=== PATIENT | male | born 1955 | race Caucasian/White ===

== ENCOUNTER 2016-09-29 11:11 | Day surgery (SDC) | payer OTHER ==
[2016-09-29] MEDS ORDERED: LACTATED RINGERS 1,000 ML IV ONE (11:36)
[2016-09-29] MEDS ORDERED: fentaNYL 250 MCG/5 ML VIAL IVP ONE (12:50)
[2016-09-29] MEDS ORDERED: MIDAZOLAM 2 MG/2 ML VIAL IVP ONE (12:50)
== END 2016-09-29 11:12 | disposition home or self-care (01) ==
PROC: 0DJD8ZZ Inspection of Lower Intestinal Tract, Via Natural or Artificial Opening Endoscopic (ICD-10-PCS; principal; 2016-09-29 12:15)
DX: Z12.11 Encounter for screening for malignant neoplasm of colon (principal); R10.31 Right lower quadrant pain; K64.4 Residual hemorrhoidal skin tags; K64.8 Other hemorrhoids; K57.30 Diverticulosis of large intestine without perforation or abscess without bleeding; Z80.42 Family history of malignant neoplasm of prostate; Z82.49 Family history of ischemic heart disease and other diseases of the circulatory system
CPT/HCPCS: 45378; J3010; J7120

== ENCOUNTER 2017-05-20 12:33 | Outpatient (CLI) | payer OTHER ==
[2017-05-20 19:43] LABS: BASOPHILS # (AUTO) 0.1 10^3/uL (0.0-0.1); BASOPHILS % (AUTO) 1.4 %; EOSINOPHILS # (AUTO) 0.5 10^3/uL (0.0-0.7); EOSINOPHILS % (AUTO) 7.7 %; HCT - HEMATOCRIT 39.8 % (42.0-52.0); HGB - HEMOGLOBIN 13.5 g/dL (14.0-18.0); LYMPHOCYTES # (AUTO) 1.5 10^3/uL (1.5-3.5); MEAN CORPUSCULAR HEMOGLOBIN 31.5 pg (27.0-31.0); MEAN CORPUSCULAR HGB CONC 33.9 g/dL (32.0-36.0); MEAN CORPUSCULAR VOLUME 92.8 fL (80.0-94.0); MONOCYTES # (AUTO) 0.6 10^3/uL (0.0-1.0); MONOCYTES % (AUTO) 9.6 %; NEUTROPHILS # (AUTO) 3.7 10^3/uL (1.5-6.6); NEUTROPHILS % (AUTO) 58.3 %; RED BLOOD COUNT 4.28 10^6/uL (4.70-6.10); RED CELL DISTRIBUTION WIDTH 13.6 % (12.0-15.0); UNCORRECTED WHITE BLOOD COUNT 6.4 x10^3/uL; WHITE BLOOD COUNT 6.4 x10^3/uL (4.8-10.8)
[2017-05-20 20:05] LABS: ALBUMIN/GLOBULIN RATIO 1.5 (1.0-2.2); BILIRUBIN,TOTAL 1.5 mg/dL (0.2-1.0); BUN - BLOOD UREA NITROGEN 23 mg/dL (6-20); CALCIUM 9.1 mg/dL (8.5-10.3); CARBON DIOXIDE - CO2 28 mmol/L (21-32); CHLORIDE 105 mmol/L (101-111); CHOL/HDL RATIO 2.6 (<5.0); CHOLESTEROL 225 mg/dL; GFR - MDRD 75 (>89); GLUCOSE 90 mg/dL (70-100); HDL CHOLESTEROL 87 mg/dL; LDL/HDL RATIO 1.4 (<3.6); POTASSIUM 4.6 mmol/L (3.5-5.0); SODIUM 136 mmol/L (135-145); TOTAL PROTEIN 6.7 g/dL (6.7-8.2); TRIGLYCERIDES 96 mg/dL; VLDL CHOLESTEROL 19 mg/dL
[2017-05-20 20:21] LABS: HEMOGLOBIN A1C 0.48 g/dL
== END 2017-05-20 12:34 ==
LOC: LAB.WCP 12:33
PROVIDERS: ATTEND Family Medicine
DX: Z00.00 Encounter for general adult medical examination without abnormal findings (principal); Z12.5 Encounter for screening for malignant neoplasm of prostate
CPT/HCPCS: 36415; 80053; 80061; 83036; 84153; 84443; 85025

== ENCOUNTER 2017-08-09 12:17 | Outpatient (CLI) | payer OTHER ==
[2017-08-09] MEDS ORDERED: IOPAMIDOL-300 50 ML VIAL ONE (12:39)
[2017-08-09] MEDS ORDERED: IOPAMIDOL-300 100 ML VIAL ONE (12:39)
[2017-08-09 12:52] LABS: CREATININE 1.1 mg/dL (0.6-1.2)
[2017-08-09] MEDS ORDERED: IOPAMIDOL-300 50 ML VIAL PO ONE (14:04)
[2017-08-09] MEDS ORDERED: IOPAMIDOL-300 100 ML VIAL IVP ONE (14:05)
--- NOTE | 2017-08-09 15:17 | CT Report ---
CT OF THE ABDOMEN AND PELVIS WITH CONTRAST: 08/09/2017 CLINICAL INDICATION: Pain, constipation. TECHNIQUE: Axial CT images of the abdomen and pelvis were obtained with 100 mL Isovue 300 intravenously as well as oral contrast. No previous CT is available for comparison. FINDINGS: Limited evaluation of the lung bases is unremarkable. ABDOMEN: The liver, spleen, pancreas, kidneys and adrenal glands are unremarkable. The gallbladder is not dilated. No bowel dilatation, free gas, or free fluid is present. No abdominal adenopathy is seen. There is a large amount of stool in the ascending and transverse colon. PELVIS: Sigmoid diverticulosis is present, without CT evidence of diverticulitis. No pelvic adenopathy or free fluid is present. Osseous structures demonstrate mild degenerative changes. IMPRESSION: DIVERTICULOSIS, WITHOUT CT EVIDENCE OF DIVERTICULITIS. In accordance with CT protocol optimization, one or more of the following dose reduction techniques were utilized for this exam: automated exposure control, adjustment of mA and/or KV based on patient size, or use of iterative reconstructive technique. TD: 08/09/2017 15:16
== END 2017-08-09 12:18 | disposition home or self-care (01) ==
LOC: LAB 12:17 → DI 12:18
PROVIDERS: ATTEND Family Medicine
DX: K57.30 Diverticulosis of large intestine without perforation or abscess without bleeding (principal); R10.9 Unspecified abdominal pain
CPT/HCPCS: 36415; 74177; 82565; Q9967

== ENCOUNTER 2017-11-18 10:49 | Outpatient (CLI) | payer OTHER ==
[2017-11-18 11:18] LABS: BASOPHILS # (AUTO) 0.1 10^3/uL (0.0-0.1); BASOPHILS % (AUTO) 2.3 %; EOSINOPHILS # (AUTO) 0.5 10^3/uL (0.0-0.7); EOSINOPHILS % (AUTO) 8.5 %; HGB - HEMOGLOBIN 13.2 g/dL (14.0-18.0); LYMPHOCYTES # (AUTO) 1.6 10^3/uL (1.5-3.5); LYMPHOCYTES % (AUTO) 29.5 %; MEAN CORPUSCULAR HEMOGLOBIN 31.3 pg (27.0-31.0); MEAN CORPUSCULAR HGB CONC 34.1 g/dL (32.0-36.0); MEAN CORPUSCULAR VOLUME 91.6 fL (80.0-94.0); MEAN PLATELET VOLUME 8.1 fL (7.4-11.4); MONOCYTES # (AUTO) 0.6 10^3/uL (0.0-1.0); MONOCYTES % (AUTO) 11.7 %; NEUTROPHILS # (AUTO) 2.6 10^3/uL (1.5-6.6); PLT - PLATELET COUNT 193 10^3/uL (130-450); RED BLOOD COUNT 4.22 10^6/uL (4.70-6.10); RED CELL DISTRIBUTION WIDTH 13.1 % (12.0-15.0); WHITE BLOOD COUNT 5.4 x10^3/uL (4.8-10.8)
[2017-11-18 11:28] LABS: CALCIUM 8.7 mg/dL (8.5-10.3)
== END 2017-11-18 10:50 | disposition home or self-care (01) ==
LOC: LAB 10:49
PROVIDERS: ATTEND Internal Medicine Gastroenterology
DX: K40.90 Unilateral inguinal hernia, without obstruction or gangrene, not specified as recurrent (principal)
CPT/HCPCS: 36415; 80048; 85025

== ENCOUNTER 2017-11-22 07:55 | Day surgery (SDC) | payer OTHER ==
[~2017-11-22 07:55] MED LIST: LACTATED RINGERS 1,000 ML IV ONE; ceFAZolin 2 GM/50 ML 2 GM/50 ML BAG IV ONE
[2017-11-22] MEDS ORDERED: BUPIVACAINE 0.5%-EPI 1:200000 PF 30 ML VIAL ONE (08:03)
[2017-11-22] MEDS ORDERED: LIDOCAINE 1% 50 ML MDV ONE (08:09)
[2017-11-22] MEDS ORDERED: BUPIVACAINE 0.5%-EPI 1:200000 PF 30 ML VIAL SUBQ ONE ×2 (08:45→09:10)
[2017-11-22] MEDS ORDERED: LIDOCAINE 1% 50 ML MDV SUBQ ONE ×2 (08:46→09:10)
[2017-11-22] MEDS ORDERED: fentaNYL 100 MCG/2 ML VIAL IVP ONE (10:00)
[2017-11-22] MEDS ORDERED: MIDAZOLAM 2 MG/2 ML VIAL IVP ONE (10:00)
[2017-11-22] MEDS ORDERED: PROPOFOL 200 MG/20 ML VIAL IVP ONE (10:00)
[2017-11-22] MEDS ORDERED: ePHEDrine 50 MG/ML AMP IVP ONE (10:00)
[2017-11-22] MEDS ORDERED: ceFAZolin 1 GM VIAL IV ONE (10:00)
[2017-11-22] MEDS ORDERED: KETOROLAC 30 MG/ML VIAL IVP ONE (10:00)
[2017-11-22 11:00] VITALS: BP 112/67
[2017-11-22] MEDS ORDERED: LACTATED RINGERS 1,000 ML IV ONE (11:10)
--- NOTE | 2017-11-22 12:29 | OPERATIVE REPORT ---
DATE OF SERVICE: 11/22/2017 Physician: Juan Daniel Coleman MD PREOPERATIVE DIAGNOSIS: Symptomatic left inguinal hernia. POSTOPERATIVE DIAGNOSIS: Symptomatic left inguinal hernia, indirect. PROCEDURE PERFORMED: Open repair of same with Bard soft tissue patch. ANESTHESIA: Local plus LMA by Dr. Piedra. VASCULAR SURGEON: Juan Daniel Coleman M.D. ESTIMATED BLOOD LOSS: Negligible. COMPLICATIONS: None. FINDINGS: A small indirect sac was present along with a lax inguinal floor. There was no evidence of femoral hernia. A medium-sized Bard PerFix soft tissue patch was implanted. INDICATIONS: The patient is a 62-year-old gentleman with a painful, reducible left groin bulge. Evaluation revealed a left inguinal hernia and he was advised to undergo repair. TECHNIQUE: After informed consent, the patient was taken to the operating room where he was placed under LMA anesthesia. Preoperative preparation included an application of sequential calf compression boots and administration 2 grams of cefazolin intravenously within an 1 hour of the incision. His left groin was prepared with iodoform solution following which a left groin block was instituted using a 50:50 combination of 0.5% Marcaine with epinephrine and 1% lidocaine plain, a total of 30 mL of the mixture was used. His groin was then prepared with ChloraPrep solution and draped in the usual sterile fashion. Transverse incision made in the skin lines of the left groin just above the pubic tubercle and extending laterally for a distance of 4-5 cm. Hemostasis achieved with electrocautery and 2-0 Vicryl tie. Incision carried down to subcutaneous tissues until the external oblique aponeurosis was exposed and was incised along the lines of its fibers in such a manner as to open the external ring and expose the internal ring. The spermatic cord was mobilized, encircled with a Concord drain. The ilioinguinal nerve was identified and preserved. The spermatic cord was dissected, isolating a small indirect sac. It was dissected free from surrounding cord structure at the level of the internal ring where it was opened and a finger inserted in the peritoneal cavity. A search for the femoral hernia was made and none was identified. The inguinal floor appeared lax. The hernia sac was twisted and doubly highly ligated with 3-0 silk suture ligatures. Excess hernia sac was amputated and discarded. A small cord lipoma was excised and discarded after ligating it at the base with 2-0 Vicryl ties. After hemostasis was assured, the wound was copiously irrigated with saline solution containing a gram of cefazolin per liter, following which a medium-sized PerFix expanded polypropylene mesh was soaked in antibiotic solution, placed over the inguinal floor and secured in place with continuous 4-0 Prolene sutures circumferentially. Care was taken to avoid excessive tightening of the patch around the cord at the level of the internal ring as well as avoiding entrapment of the ilioinguinal nerve. Again, after hemostasis assured, the wound was irrigated with antibiotic solution following which wound closure was accomplished in layers using continuous 2-0 Vicryl to reapproximate the external oblique aponeurosis overlying the cord with care being again taken to avoid entrapment of the ilioinguinal nerve. The Abhilash's fascia was closed with continuous 3-0 Vicryl and the skin with 4-0 Monocryl subcuticular on the skin closure, followed by Dermabond. Anesthesia was terminated. The patient was transferred to the recovery room in satisfactory condition. Sponge and needle counts were correct x2 and no drains were used. TD: 11/22/2017 10:46
== END 2017-11-22 07:56 | disposition home or self-care (01) ==
LOC: SDS 07:55
PROVIDERS: ATTEND Internal Medicine Gastroenterology
PROC: 0YU60JZ Supplement Left Inguinal Region with Synthetic Substitute, Open Approach (ICD-10-PCS; principal; 2017-11-22 09:00)
DX: K40.90 Unilateral inguinal hernia, without obstruction or gangrene, not specified as recurrent (principal); G89.29 Other chronic pain; M54.5 Low back pain; E80.4 Gilbert syndrome; L76.32 Postprocedural hematoma of skin and subcutaneous tissue following other procedure
CPT/HCPCS: 49505; 96372; 99283; C1781; J0690; J7120

== ENCOUNTER 2017-11-22 23:10 | Emergency (ER) | payer OTHER ==
[2017-11-22] MEDS ORDERED: fentaNYL 100 MCG/2 ML VIAL IM STA (23:59)
--- NOTE | 2017-11-23 00:03 | ED Physician Documentation ---
PD HPI ABD PAIN - Stated complaint Stated Complaint: SWELLING S/P SURGERY - Chief complaint Chief Complaint: Abd Pain - History obtained from History obtained from: Patient - History of Present Illness Timing - onset: Today Timing - details: Gradual onset, Still present Quality: Cramping, Aching Location: LLQ Associated symptoms: No: Fever, Nausea, Vomiting Recently seen: Surgery - Additional information Additional information: patient is a 62 year old male presenting to the emergency department for abdominal pain and swelling after having hernia surgery earlier today. patient states that for the last 4 hours it has become progressively worse. patient called the covering surgeon who told him to come in for evaluation. Review of Systems Constitutional: denies: Fever, Chills GI: reports: Abdominal Pain, Abdominal Swelling, Constipation. denies: Nausea, Vomiting : denies: Dysuria, Unable to Void, Hematuria PD PAST MEDICAL HISTORY - Past Medical History Past Medical History: Yes Cardiovascular: None Respiratory: None Endocrine/Autoimmune: None GI: None : None HEENT: Chronic sinusitis Psych: Claustrophobia Musculoskeletal: Chronic back pain - Past Surgical History Past Surgical History: Yes General: Appendectomy - Present Medications Home Medications: Ambulatory Orders Medication Instructions Recorded Confirmed Cetirizine HCl 10 mg PO DAILY 11/22/17 11/22/17 HYDROcod/ACETAM 5/325 [[place] 5/325] 1 tab PO ONCE 11/22/17 11/22/17 Multivit,Th Iron,Other Min 1 each PO DAILY 11/22/17 11/22/17 [Thera-M] - Allergies Allergies/Adverse Reactions: Allergies Allergy/AdvReac Type Severity Reaction Status Date / Time No Known Drug Allergies Allergy Verified 11/22/17 23:20 - Social History Does the pt smoke?: No Smoking Status: Never smoker Does the pt have substance abuse?: No PD ED PE NORMAL - Vitals Vital signs reviewed: Yes - General General: Alert and oriented X 3 - HEENT HEENT: Atraumatic - Cardiac Cardiac: RRR - Respiratory Respiratory: No respiratory distress - Extremities Extremities: No deformity - Neuro Neuro: Alert and oriented X 3 Eye Opening: Spontaneous Motor: Obeys Commands Verbal: Oriented GCS Score: 15 - Psych Psych: Normal mood PD ED PE EXPANDED - Abdomen Abdomen: Tender to palpation, Left abdomen (6cm by 8cm firm mass in left lower abdomen), Surgical scars Results - Vitals Vitals: Vital Signs - 24 hr 06/04/18 23:17 Temperature 37.0 C Heart Rate 104 H Respiratory 18 Rate Blood Pressure 121/86 H O2 Saturation 99 Oxygen O2 Source Room air PD MEDICAL DECISION MAKING - ED course Complexity details: reviewed old records, re-evaluated patient, considered differential, d/w patient, d/w [facility] consultant ED course: Patient was seen and examined at bedside. covering surgeon Dr. Villalobos was contacted and the case was discussed with him. He came to evaluate the patient. After evaluation it was determined patient likely had a hematoma. There was no intervention necessary at this time. Patient was treated with fentanyl for pain and was stable for discharge with outpatient follow up. Departure - Departure Disposition: Home, Self Care Clinical Impression: Hematoma of surgical wound of skin after surgical procedure Condition: Good Instructions: ED Hematoma Follow-Up: Juan Daniel Coleman MD [Provider Admit Priv/Credential] - Comments: Your symptoms today are likely being caused by post surgical hematoma. You should alternate between ice and heat over the wound. You should follow up with Dr. Coleman tomorrow morning for re-evaluation. You may return to the emergency department at any time for new, worsening or uncontrollable symptoms.
[2017-11-23 00:30] VITALS: BP 111/68
[2017-11-23] MEDS ORDERED: ONDANSETRON ODT 4 MG Prepack 2 TL STA (00:44)
== END 2017-11-23 00:29 | disposition home or self-care (01) ==
LOC: ED 23:10
DX: L76.32 Postprocedural hematoma of skin and subcutaneous tissue following other procedure (principal)
CPT/HCPCS: 96372; 99283

== ENCOUNTER 2017-12-14 10:56 | Outpatient (CLI) | payer OTHER ==
--- NOTE | 2017-12-14 12:43 | CT Report ---
Procedure Date: 12/14/2017 Accession Number: [id number] / [id number] Procedure: CT - Sinuses CPT Code: FULL RESULT: EXAM: Sinuses DATE: 12/14/2017 11:10 AM CLINICAL HISTORY: OTHER CHRONIC SINUSITIS, NASAL OBSTRUCTION COMPARISON: None. TECHNIQUE: Routine multi-axial CT imaging performed through the sinuses. Iodinated IV contrast: None. Reconstructions: Coronal. In accordance with CT protocol optimization, one or more of the following dose reduction techniques were utilized for this exam: automated exposure control, adjustment of mA and/or KV based on patient size, or use of iterative reconstructive technique. FINDINGS: RIGHT Frontal: Normal. Ethmoid: Normal. Maxillary: Normal. Sphenoid: Normal. Drainage Pathways: The frontal recess, ostiomeatal complex and sphenoethmoidal recess are patent and normal. LEFT Frontal: Normal. Ethmoid: Normal. Maxillary: Normal. Sphenoid: Normal. Drainage Pathways: The frontal recess, ostiomeatal complex and sphenoethmoidal recess are patent and normal. Nasal Cavity: Rightward deviation and spurring of the septum. Osseous Structures: Normal. Orbits: Unremarkable. Other: None. IMPRESSION: Rightward deviation and spurring of the nasal septum. No evidence of acute or chronic sinusitis. RADIA
== END 2017-12-14 10:57 | disposition home or self-care (01) ==
LOC: DI 10:56
PROVIDERS: ATTEND Otolaryngology
DX: J34.2 Deviated nasal septum (principal); J34.89 Other specified disorders of nose and nasal sinuses
CPT/HCPCS: 70486

== ENCOUNTER 2018-07-27 13:44 | Outpatient (CLI) | payer OTHER ==
[2018-07-27 19:18] LABS: BASOPHILS # (AUTO) 0.1 10^3/uL (0.0-0.1); BASOPHILS % (AUTO) 1.2 %; EOSINOPHILS # (AUTO) 0.1 10^3/uL (0.0-0.7); EOSINOPHILS % (AUTO) 1.2 %; LYMPHOCYTES # (AUTO) 0.8 10^3/uL (1.5-3.5); LYMPHOCYTES % (AUTO) 15.3 %; MEAN CORPUSCULAR HGB CONC 32.9 g/dL (32.0-36.0); MEAN CORPUSCULAR VOLUME 94.3 fL (80.0-94.0); MEAN PLATELET VOLUME 8.9 fL (7.4-11.4); MONOCYTES # (AUTO) 0.5 10^3/uL (0.0-1.0); MONOCYTES % (AUTO) 8.9 %; NEUTROPHILS % (AUTO) 73.4 %; PLT - PLATELET COUNT 231 10^3/uL (130-450); RED CELL DISTRIBUTION WIDTH 13.3 % (12.0-15.0); WHITE BLOOD COUNT 5.4 x10^3/uL (4.8-10.8)
[2018-07-27 19:40] LABS: ALBUMIN 4.1 g/dL (3.2-5.5); ALBUMIN/GLOBULIN RATIO 1.3 (1.0-2.2); BILIRUBIN,TOTAL 1.7 mg/dL (0.2-1.0); CALCIUM 9.2 mg/dL (8.5-10.3); CREATININE 0.9 mg/dL (0.6-1.2); TOTAL PROTEIN 7.2 g/dL (6.7-8.2)
[2018-07-27 19:51] LABS: FERRITIN 85.8 ng/mL (23.9-336.2)
== END 2018-07-27 13:45 | disposition home or self-care (01) ==
LOC: LAB.WCP 13:44
PROVIDERS: ATTEND Family Medicine
DX: D64.9 Anemia, unspecified (principal); Z12.5 Encounter for screening for malignant neoplasm of prostate
CPT/HCPCS: 36415; 80053; 82728; 83540; 84153; 84443; 84466; 85025

== ENCOUNTER 2020-03-21 14:44 | Outpatient (CLI) | payer MEDICARE ==
--- NOTE | 2020-03-21 15:54 | MRI Report ---
PROCEDURE: Lumbar Spine W/O INDICATIONS: LOW BACK PAIN TECHNIQUE: Noncontrast sagittal T1 spin echo and T2 fast echo, sagittal STIR, axial T1 and T2 fast spin echo thr ough the lumbar spine. In cases with scoliosis, additional coronal T2 fast spin echo may be performe d. COMPARISON: Plain films of the lumbar spine dated 01.22.17. FINDINGS: Image quality: Excellent. Alignment and Curvature: 5 lumbar type vertebral bodies are present by plain film. Loss of normal lum bar lordosis. Bone Marrow: Marrow is of normal overall signal. No acute vertebral body compression fractures. Mi ld reactive signal within the end plates adjacent to the L1-L2, L2-L3, and L5-S1 intervertebral discs . Spinal Cord: Conus medullaris terminates at the mid L2 level. Visualized cord demonstrates normal s ignal and size. Paraspinous Soft Tissues: No paravertebral masses. T12-L1: Mild disc height loss and desiccation. No significant canal, nor foraminal stenosis. L1-L2: Moderate disc height loss and desiccation. Mild diffuse disc bulge. Mild facet and ligament flavum hypertrophy. Mild epidural lipomatosis. Mild canal stenosis. Mild bilateral foraminal stenosi s. L2-L3: Moderate disc height loss and desiccation. Moderate diffuse disc bulge with superimposed br oad-based left far lateral protrusion. Mild facet and ligament flavum hypertrophy. Mild canal stenosi s. Moderate left greater than right foraminal stenosis. L3-L4: Mild disc desiccation. Small left and right far lateral broad-based protrusions. Mild facet and ligament flavum hypertrophy. Mild canal stenosis. Moderate subarticular foraminal stenoses bilate rally. L4-L5: Mild disc height loss and desiccation. Mild diffuse disc bulge. Mild facet and ligament flav um hypertrophy. Mild canal stenosis. Moderate subarticular foraminal stenosis bilaterally. L5-S1: Moderate disc height loss and desiccation. Mild diffuse disc bulge. Mild facet hypertrophy b ilaterally. Mild canal stenosis. Severe left and moderate right foraminal stenosis. Left L5 nerve bruce t compression. IMPRESSION: 1. Multilevel degenerative disc and facet disease, in addition to epidural lipomatosis and ligamentum flavum hypertrophy. 2. Multilevel mild canal stenoses. 3. Multilevel foraminal stenoses, worst at L5-S1 where there is associated L5 nerve root compression. Recommend correlation with clinical symptoms to ascertain relevance of this finding. Reviewed by: Joselyn Marshall MD on 03/21/2020 3:52 PM PDT Approved by: Joselyn Marshall MD on 03/21/2020 3:52 PM PDT Station ID: [id number]
== END 2020-03-21 14:45 | disposition home or self-care (01) ==
LOC: DI 14:44
PROVIDERS: ATTEND Physical Medicine & Rehabilitation Pain Medicine
DX: E88.2 Lipomatosis, not elsewhere classified (principal); M51.35 Other intervertebral disc degeneration, thoracolumbar region; M51.36 Other intervertebral disc degeneration, lumbar region; M47.816 Spondylosis without myelopathy or radiculopathy, lumbar region; M51.26 Other intervertebral disc displacement, lumbar region; M48.061 Spinal stenosis, lumbar region without neurogenic claudication; M51.37 Other intervertebral disc degeneration, lumbosacral region; M48.07 Spinal stenosis, lumbosacral region; M47.817 Spondylosis without myelopathy or radiculopathy, lumbosacral region
CPT/HCPCS: 72148

== ENCOUNTER 2021-05-28 08:00 | Outpatient (CLI) | payer MEDICARE ==
[2021-05-28 13:09] LABS: BASOPHILS # (AUTO) 0.1 10^3/uL (0.0-0.1); BASOPHILS % (AUTO) 1.1 %; EOSINOPHILS # (AUTO) 0.3 10^3/uL (0.0-0.7); EOSINOPHILS % (AUTO) 3.8 %; HCT - HEMATOCRIT 40.8 % (42.0-52.0); HGB - HEMOGLOBIN 13.7 g/dL (14.0-18.0); LYMPHOCYTES # (AUTO) 1.5 10^3/uL (1.5-3.5); LYMPHOCYTES % (AUTO) 22.7 %; MEAN CORPUSCULAR HEMOGLOBIN 31.3 pg (27.0-31.0); MEAN CORPUSCULAR HGB CONC 33.6 g/dL (32.0-36.0); MEAN CORPUSCULAR VOLUME 93.2 fL (80.0-94.0); MEAN PLATELET VOLUME 11.1 fL (7.4-11.4); MONOCYTES # (AUTO) 0.6 10^3/uL (0.0-1.0); MONOCYTES % (AUTO) 9.7 %; NEUTROPHILS # (AUTO) 4.1 10^3/uL (1.5-6.6); NEUTROPHILS % (AUTO) 62.4 %; PLT - PLATELET COUNT 214 10^3/uL (130-450); RED BLOOD COUNT 4.38 10^6/uL (4.70-6.10); RED CELL DISTRIBUTION WIDTH 12.4 % (12.0-15.0); WHITE BLOOD COUNT 6.5 x10^3/uL (4.8-10.8)
[2021-05-28 13:12] LABS: BILIRUBIN,URINE NEGATIVE (NEGATIVE); GLUCOSE, URINE (UA) NEGATIVE (NEGATIVE); KETONES,URINE (UA) NEGATIVE (NEGATIVE); LEUKOCYTE ESTERASE, URINE NEGATIVE (NEGATIVE); NITRITE,URINE NEGATIVE (NEGATIVE); OCCULT BLOOD,URINE NEGATIVE (NEGATIVE); PROTEIN,URINE NEGATIVE (NEGATIVE); UROBILINOGEN,URINE 0.2 (NORMAL) E.U./dL (NORMAL)
[2021-05-28 13:36] LABS: BACTERIA,URINE None Seen /HPF (None Seen); CLARITY,URINE CLEAR (CLEAR); RBC,URINE None Seen /HPF (0-5); SQUAMOUS EPITHELIAL CELL,UR NONE SEEN (<= Few); WBC,URINE 0-3 /HPF (0-3)
[2021-05-28 14:15] LABS: ALBUMIN 4.1 g/dL (3.2-5.5); ALBUMIN/GLOBULIN RATIO 1.6 (1.0-2.2); ALKALINE PHOSPHATASE 47 IU/L (42-121); ALT ALANINE AMINOTRANSFERASE 19 IU/L (10-60); AST ASPARTATE AMINOTRANSFERASE 21 IU/L (10-42); BILIRUBIN,TOTAL 2.7 mg/dL (0.2-1.0); BUN - BLOOD UREA NITROGEN 17 mg/dL (6-20); CALCIUM 9.4 mg/dL (8.5-10.3); CARBON DIOXIDE - CO2 29 mmol/L (21-32); CHLORIDE 100 mmol/L (101-111); CHOL/HDL RATIO 2.9 (<5.0); CHOLESTEROL 241 mg/dL; GFR - MDRD 75 (>89); GLUCOSE 88 mg/dL (70-100); HDL CHOLESTEROL 84 mg/dL; LDL CHOLESTEROL,CALCULATED 144 mg/dL; LDL/HDL RATIO 1.7 (<3.6); POTASSIUM 4.6 mmol/L (3.5-5.0); SODIUM 135 mmol/L (135-145); TOTAL PROTEIN 6.7 g/dL (6.7-8.2); TRIGLYCERIDES 67 mg/dL; VLDL CHOLESTEROL 13 mg/dL
[2021-05-28 14:24] LABS: THYROID STIMULATING HORMONE 3.16 uIU/mL (0.34-5.60)
== END 2021-05-28 23:59 ==
LOC: LAB.WCP 08:00
PROVIDERS: ATTEND Nurse Practitioner
DX: R53.83 Other fatigue (principal); Z13.220 Encounter for screening for lipoid disorders; R30.0 Dysuria; R19.4 Change in bowel habit; Z12.5 Encounter for screening for malignant neoplasm of prostate
CPT/HCPCS: 36415; 80053; 80061; 81001; 83516; 84443; 85025; G0103; 83721; 84153; 87086

== ENCOUNTER 2022-03-09 13:35 | Outpatient (CLI) | payer MEDICARE ==
--- NOTE | 2022-03-09 16:27 | XRAY Report ---
PROCEDURE: Chest 2 View X-Ray INDICATIONS: MASS OR LUMP TECHNIQUE: 2 view(s) of the chest. COMPARISON: Chest x-ray 2 views, 12/01/2006. FINDINGS: Surgical changes and devices: None. Lungs and pleura: Hyperinflation consistent with COPD. Possible left lower lobe nodule versus artifa ct. No pleural effusions or pneumothorax. Mediastinum: Mediastinal contours are normal. Heart size is normal. Bones and chest wall: No suspicious bony abnormalities. Soft tissues appear unremarkable. IMPRESSION: 1. COPD. 2. Question lung nodule versus artifact in the left lower lobe. Recommend noncontrast chest CT for fo llow-up evaluation. Reviewed by: Blair Watts MD on 03/09/2022 4:26 PM PDT Approved by: Blair Watts MD on 03/09/2022 4:26 PM PDT Station ID: [id number]
== END 2022-03-09 13:36 | disposition home or self-care (01) ==
LOC: DI.N 13:35
PROVIDERS: ATTEND Internal Medicine
DX: J44.9 Chronic obstructive pulmonary disease, unspecified (principal); R91.8 Other nonspecific abnormal finding of lung field

== ENCOUNTER 2024-03-13 23:00 | Emergency (ER) | payer MEDICARE ==
[2024-03-13 23:28] LABS: BASOPHILS # (AUTO) 0.1 10^3/uL (0.0-0.1); BASOPHILS % (AUTO) 0.4 %; EOSINOPHILS # (AUTO) 0.1 10^3/uL (0.0-0.7); EOSINOPHILS % (AUTO) 0.6 %; HCT - HEMATOCRIT 41.8 % (42.0-52.0); HGB - HEMOGLOBIN 13.9 g/dL (14.0-18.0); LYMPHOCYTES # (AUTO) 1.3 10^3/uL (1.5-3.5); LYMPHOCYTES % (AUTO) 10.1 %; MEAN CORPUSCULAR HEMOGLOBIN 30.9 pg (27.0-31.0); MEAN CORPUSCULAR HGB CONC 33.3 g/dL (32.0-36.0); MEAN CORPUSCULAR VOLUME 92.9 fL (80.0-94.0); MONOCYTES # (AUTO) 1.3 10^3/uL (0.0-1.0); MONOCYTES % (AUTO) 9.7 %; NEUTROPHILS # (AUTO) 10.2 10^3/uL (1.5-6.6); NEUTROPHILS % (AUTO) 78.9 %; PLT - PLATELET COUNT 218 10^3/uL (130-450); RED CELL DISTRIBUTION WIDTH 12.9 % (12.0-15.0); WHITE BLOOD COUNT 12.9 x10^3/uL (4.8-10.8)
[2024-03-13 23:37] LABS: BILIRUBIN,URINE NEGATIVE (NEGATIVE); GLUCOSE, URINE (UA) NEGATIVE (NEGATIVE); KETONES,URINE (UA) 15 mg/dL (NEGATIVE); LEUKOCYTE ESTERASE, URINE NEGATIVE (NEGATIVE); NITRITE,URINE NEGATIVE (NEGATIVE); OCCULT BLOOD,URINE NEGATIVE (NEGATIVE); PH,URINE 6.5 PH (5.0-7.5); PROTEIN,URINE NEGATIVE (NEGATIVE); UROBILINOGEN,URINE 0.2 (NORMAL) E.U./dL (NORMAL)
[2024-03-13 23:39] LABS: CLARITY,URINE CLEAR (CLEAR)
[2024-03-13 23:45] LABS: ALBUMIN 4.3 g/dL (3.2-5.5); ALBUMIN/GLOBULIN RATIO 1.5 (1.0-2.2); BILIRUBIN,TOTAL 2.1 mg/dL (0.2-1.0); CALCIUM 9.5 mg/dL (8.5-10.3); POTASSIUM 3.7 mmol/L (3.5-4.5); TOTAL PROTEIN 7.1 g/dL (6.4-8.9)
--- NOTE | 2024-03-14 00:20 | ED Physician Documentation ---
PD HPI ABD PAIN - Stated complaint Stated Complaint: ABD PX - Chief complaint Chief Complaint: Abd Pain - History obtained from History obtained from: Patient - Additional information Additional information: HPI from patient. Patient complains of abdominal pain across mid and lower abdomen. He initially experienced this pain approximately 1 week ago without specific inciting event. He says he had never had similar pain before that. Within the same days onset 1 week ago, the pain had completely resolved. The pain then reoccurred 2 days ago at approximately 2 PM, again without any specific inciting event. The pain waxes and wanes without exacerbating factors. The patient experienced improvement this evening after taking tramadol. Denies nausea, vomiting. Denies fever. Denies dysuria, urinary frequency. Past surgical history includes appendectomy, left inguinal herniorrhaphy. Review of Systems Constitutional: reports: Reviewed and negative Cardiac: reports: Reviewed and negative Respiratory: reports: Reviewed and negative GI: reports: Abdominal Pain. denies: Nausea, Vomiting, Constipation, Diarrhea, Bloody / black stool : denies: Dysuria, Frequency, Hematuria Skin: denies: Rash PD PAST MEDICAL HISTORY - Past Medical History Past Medical History: Yes Cardiovascular: None Respiratory: None Endocrine/Autoimmune: None GI: None : None HEENT: Chronic sinusitis Psych: Claustrophobia Musculoskeletal: Chronic back pain - Past Surgical History Past Surgical History: Yes General: Appendectomy - Present Medications Home Medications: Ambulatory Orders Medication Instructions Recorded Confirmed Cetirizine HCl 10 mg PO DAILY 11/22/17 11/22/17 HYDROcod/ACETAM 5/325 [[place] 5/325] 1 tab PO ONCE 11/22/17 11/22/17 Multivit,Tx with Iron,Minerals 1 each PO DAILY 11/22/17 11/22/17 [Thera-M] Ondansetron Odt [Zofran] 4 mg TL Q6H PRN #14 tablet 11/23/17 Amox/Clav 875/125 [Augmentin 1 tablet PO Q12H 7 Days #14 tablet 03/14/24 875/125 Tab] - Allergies Allergies/Adverse Reactions: Allergies Allergy/AdvReac Type Severity Reaction Status Date / Time No Known Drug Allergies Allergy Verified 03/13/24 23:05 - Social History Does the pt smoke?: No Smoking Status: Never smoker Does the pt have substance abuse?: No - Immunizations Immunizations are current?: Yes - POLST Patient has POLST: No PD ED PE NORMAL - Vitals Vital signs reviewed: Yes - General General: Alert and oriented X 3, No acute distress, Well developed/nourished - Cardiac Cardiac: RRR, No murmur - Respiratory Respiratory: No respiratory distress, Clear bilaterally - Abdomen Abdomen: Soft, Non distended, Other (mild TTP across lower abdomen, LLQ>RLQ; no rebound or guarding) Results - Vitals Vitals: Oxygen O2 Source Room air - Labs Labs: Laboratory Tests 03/13/24 03/13/24 03/13/24 23:20 23:22 23:22 WBC 12.9 H RBC 4.50 L Hgb 13.9 L Hct 41.8 L MCV 92.9 MCH 30.9 MCHC 33.3 RDW 12.9 Plt Count 218 MPV 10.0 Neut # (Auto) 10.2 H Lymph # (Auto) 1.3 L [place] # (Auto) 1.3 H Eos # (Auto) 0.1 Baso # (Auto) 0.1 Absolute Nucleated RBC 0.00 Nucleated RBC % 0.0 Sodium 134 L Potassium 3.7 Chloride 99 L Carbon Dioxide 27 Anion Gap 8.0 BUN 16 Creatinine 1.0 Estimated GFR (MDRD) 74 L Glucose 101 Calcium 9.5 Total Bilirubin 2.1 H AST 22 ALT 13 Alkaline Phosphatase 50 Total Protein 7.1 Albumin 4.3 Globulin 2.8 Albumin/Globulin Ratio 1.5 Lipase 30 Urine Color YELLOW Urine Clarity CLEAR Urine pH 6.5 Ur Specific [place] 1.015 Urine Protein NEGATIVE Urine Glucose (UA) NEGATIVE Urine Ketones 15 H Urine Occult Blood NEGATIVE Urine Nitrite NEGATIVE Urine Bilirubin NEGATIVE Urine Urobilinogen 0.2 (NORMAL) Ur Leukocyte Esterase NEGATIVE Ur Microscopic Review NOT INDICATED Urine Culture Comments NOT INDICATED - Rads (name of study) CT A/P with IV contrast Relevant Findings:: Prelim report reviewed, See rad report PD Medical Decision Making - ED course Complexity details: reviewed results, re-evaluated patient, considered differential, d/w patient ED course: No concerning nor diagnostic findings on urinalysis, blood tests. Mild leukocytosis noted (WBC 12.9). Mildly elevated bilirubin (2.1) but otherwise normal LFTs. Normal lipase. CT A/P with IV contrast demonstrates uncomplicated sigmoid diverticulitis. Results reviewed with patient along with diagnosis, expected course of illness, return precautions. We discussed options for treatment, specifically pain medication (patient says he will use the tramadol he has at home) as well as antibiotics. He is given 875 mg Augmentin p.o. and I have electronically submitted a prescription for a 1-week course of Augmentin to patient's pharmacy of choice. Departure - Departure Disposition: 01 Home, Self Care Clinical Impression: Diverticulitis of gastrointestinal tract Condition: Good Instructions: ED Diverticulitis Prescriptions: Amox/Clav 875/125 [Augmentin 875/125 Tab] 1 tablet PO Q12H 7 Days #14 tablet Comments: There were no concerning findings on tonight's blood tests. Your CT scan demonstrates diverticulitis. Basic information regarding this diagnosis is included within these discharge instructions. You were given the first dose of an antibiotic (Augmentin) in the emergency department to decrease the likelihood of complications of diverticulitis, and I have electronically submitted a prescription for 1-week course of this antibiotic to the [facility] pharmacy in [place]. Discharge Date/Time: 03/14/24 03:31
[2024-03-14] MEDS ORDERED: iohexoL-300 100 ML VIAL ONE (01:43)
[2024-03-14] MEDS: iohexoL-300 100 ML VIAL IVP ONE (02:02)
--- NOTE | 2024-03-14 02:14 | CT Report ---
PROCEDURE: Abdomen/Pelvis W INDICATIONS: abd. pain CONTRAST: Omni 300 100mls TECHNIQUE: After the administration of intravenous contrast, a CT scan of the abdomen and pelvis was performed. Images were recorded and evaluated at appropriate window settings. Reformats: coronal and sagittal. F or radiation dose reduction, the following was used: automated exposure control, adjustment of mA and /or kV according to patient size. COMPARISON: 08/09/2017 FINDINGS: Image quality: Diagnostic. Lower chest: Unremarkable. Liver: No solid mass. Gallbladder: No radiopaque stones or wall thickening. Biliary tree: No intrahepatic or extrahepatic dilation, accounting for age. Spleen: No splenomegaly. Pancreas: No pancreatic ductal dilation. Adrenals: No adrenal nodule. Kidneys and ureters: No hydronephrosis. No renal cystic lesion which requires follow up. No solid mas s. Stomach, bowel and peritoneum: No gastric or small bowel dilation. No abnormal wall thickening. No pa thologic free fluid. Sigmoid colonic wall thickening in the presence of diverticula. There is pericol onic fat stranding. A prominent diverticulum is present (series 2, image 95). Lymph nodes: No central or retroperitoneal adenopathy. Vessels: No infrarenal aortic aneurysm. Patent portal vein. PELVIS Reproductive organs: Unremarkable. Bladder: No abnormal wall thickening, accounting for underdistention. Pelvic lymph nodes: No pelvic adenopathy by size criteria. Bones: No aggressive osseous abnormality. Degenerative changes of the spine. Other: No significant ventral or inguinal hernia. IMPRESSION: Diverticulitis of the sigmoid colon, without perforation. Reviewed by: Suleiman Flor MD on 03/14/2024 2:12 AM PDT Approved by: Suleiman Flor MD on 03/14/2024 2:12 AM PDT Station ID: [id number]
[2024-03-14 02:16] VITALS: BP 125/86; O2SAT 99
[2024-03-14] MEDS: AMOX/CLAV 875 MG/125 MG TABLET PO STA (03:24)
== END 2024-03-14 03:31 | disposition home or self-care (01) ==
LOC: ED 23:00
DX: K57.32 Diverticulitis of large intestine without perforation or abscess without bleeding (principal); D72.829 Elevated white blood cell count, unspecified
CPT/HCPCS: 36415; 74177; 80053; 81003; 83690; 85025; 99284; A9270; Q9967; 81001; 87086